=== PATIENT | female | born 1955 | race Caucasian/White ===

== ENCOUNTER 2017-10-08 15:49 | Emergency (ER) | payer OTHER ==
[2017-10-08] MEDS ORDERED: methylPREDNISolone INJ 125 MG/2 ML VIAL (J2930) IV (16:15)
[2017-10-08] MEDS: IPRATROPIUM 0.5MG/ALBUTEROL 2.5MG INH SOL UD 3ML (DUONEB)(J7620) NEB (16:19)
[2017-10-08] MEDS: ALBUTEROL SULFATE 2.5 MG/0.5 ML INH NEB SOLN NEB (16:19)
[2017-10-08] MEDS: diphenhydrAMINE INJ 50MG/ML VIAL (J1200) IV (16:40)
[2017-10-08] MEDS: dexameTHASONE 20 MG/5 ML VIAL (J1100) IV (16:40)
== END 2017-10-08 18:14 | disposition home or self-care (01) ==
LOC: M ED 15:49
DX: J45.901 Unspecified asthma with (acute) exacerbation (principal); Z77.29 Contact with and (suspected) exposure to other hazardous substances; K21.9 Gastro-esophageal reflux disease without esophagitis; F43.10 Post-traumatic stress disorder, unspecified; F41.9 Anxiety disorder, unspecified; Z79.899 Other long term (current) drug therapy; Z79.890 Hormone replacement therapy; Z88.1 Allergy status to other antibiotic agents; Z88.8 Allergy status to other drugs, medicaments and biological substances; Z88.0 Allergy status to penicillin; Z88.2 Allergy status to sulfonamides
CPT/HCPCS: J1200